=== PATIENT | male | born 2000 | race Caucasian/White ===

== ENCOUNTER 2022-03-23 11:39 | Emergency (ER) | payer BC, SELFPAY ==
[2022-03-23 11:52] VITALS: BP 122/58; PULSE 76; RESP 18; TEMP 36.6; O2SAT 97; BMI 25.8
--- NOTE | 2022-03-23 12:37 | ED.GENADULT ---
HPI - General Adult General Time Seen by Provider: 12:37 Date Seen: 03/23/22 Chief complaint: Abdominal Pain Stated complaint: Abdominal Pain Time Seen by Provider: 03/23/22 11:40 Source: patient Mode of arrival: ambulatory Limitations: no limitations History of Present Illness HPI narrative: Patient is a 21-year-old male who was in [place] about a month ago has had diarrhea since, he was on some type of dexamethasone medicine for a week or so prescribed by his physician family member in [place]. The patient denies fevers denies blood in his stool, denies significant abdominal pain, but he does have some abdominal cramping when he has loose stools, he reports mostly it is water. He reports he has about 10 stools a day. He has had no weight loss. He is attending school in [place]. He is generally quite healthy on no home medications. Related Data Home Medications Medication Instructions Recorded Confirmed No Known Home Medications 03/23/22 03/23/22 Allergies Allergy/AdvReac Type Severity Reaction Status Date / Time No Known Drug Allergies Allergy Verified 03/23/22 11:58 Review of Systems Status of ROS: Reports: 6 or more systems reviewed and unremarkable except as noted in History and below PFSH PFS Social History Smoking Status: Never smoker How often do you have a drink containing alcohol: monthly or less AUDIT-C Alcohol total score: 1 Non-prescribed substance use: denies use Exam Narrative: Exam Narrative: Objective: Patient is no apparent distress noncyanotic Vital signs are unremarkable he he is afebrile HEENT is unremarkable good hydration in the mouth Neck is supple Abdomen benign soft nontender Pulses regular Extremities show good perfusion neurologic grossly nonfocal he is ambulatory Const: Vital Signs, click to edit/add: Vital Signs - 24 hr 03/23/22 11:52 Temperature 97.9 F Pulse Rate [Pulse Oximeter] 76 Respiratory Rate 18 Blood Pressure [Ri ght Upper Arm] 122/58 L Pulse Oximetry 97 Oxygen Delivery Me thod Room Air Course Vital Signs Vital signs: Initial Vital Signs Temperature 97.9 F 03/23/22 11:52 Temperature Source Temporal Artery Scan 03/23/22 11:52 Pulse Rate 76 03/23/22 11:52 Respiratory Rate 18 03/23/22 11:52 Blood Pressure 122/58 L 03/23/22 11:52 Blood Pressure Mean 79 03/23/22 11:52 Blood Pressure Position Supine 03/23/22 11:52 Pulse Oximetry 97 03/23/22 11:52 Oxygen Delivery Method 03/23/22 11:52 Vital Signs Temperature 97.9 F 03/23/22 11:52 Pulse Rate 76 03/23/22 11:52 Respiratory Rate 18 03/23/22 11:52 Blood Pressure 122/58 L 03/23/22 11:52 Pulse Oximetry 97 03/23/22 11:52 Oxygen Delivery Method 03/23/22 11:52 Temperature 97.9 F 03/23/22 11:52 Pulse Rate 76 03/23/22 11:52 Respiratory Rate 18 03/23/22 11:52 Blood Pressure 122/58 L 03/23/22 11:52 Pulse Oximetry 97 03/23/22 11:52 Oxygen Delivery Method 03/23/22 11:52 Medical Decision Making MDM Narrative Medical decision making narrative: Patient has had about a 1 month history of loose stools watery stools since travel to [place]. He was on some type of steroid medicine for a few days. His symptoms started before that. He has had some looser stools when he comes back from [place] in the past but they usually resolve. He has been taking Imodium, and that seems to help a little. He has a benign abdomen, and benign appearance. I think at this point he would benefit from stool culture O&P, C diff, and continue Imodium. I think we will wait and see what his culture shows before we treated with antibiotics. Addendum: The patient's lab studies look reassuring, his CRP is negative. He did leave some stool sample here that test will be run on. In the interim he will do the Imodium, yogurt to 3 times a day, fluids, Tylenol if needed. We will call him back as an ER with the results of his stool sample studies. Treatment if needed. Hopefully his symptoms will be self-limited. If he is not better within the next 3-5 days and recommend repeat recheck with his regular doctor Lab Data Labs: Lab Results 03/23/22 03/23/22 03/23/22 Range/Units 12:31 12:31 12:31 WBC 5.98 (4.50-11.00) K/uL RBC 4.73 (4.30-5.90) m/uL Hgb 14.5 (13.5-17.5) gm/dL Hct 42.7 (37.0-53.0) % MCV 90 (80-100) fL MCH 31 (26-34) pg MCHC 34 (32-36) gm/dL RDW Coeff of Estuardo 11.6 (11.5-15.5) % Plt Count 241 (140-440) K/uL Neut % (Auto) 48.4 (42.0-72.0) % Lymph % (Auto) 40.6 (20-44) % Caswell % (Auto) 8.2 (0.0-11.0) % Eos % (Auto) 2.3 (0.0-7.0) % Baso % (Auto) 0.3 (0.0-3.0) % Neut # (Auto) 2.89 (1.7-7.0) K/uL Lymph # (Auto) 2.43 (0.90-2.90) K/uL Caswell # (Auto) 0.50 (0.00-0.90) K/UL Eos # (Auto) 0.14 (0.00-0.50) K/uL Baso # (Auto) 0.02 (0.00-0.30) K/uL Sodium 141 (135-149) mmol/L Potassium 4.4 (3.6-5.1) mmol/L Chloride 107 (96-114) mmol/L Carbon Dioxide 28 (20-32) mmol/L BUN 15 (5-24) mg/dL Creatinine 0.8 (0.5-1.5) mg/dL Estimated Creat Clear 132.92 Estimated GFR 130 ml/min Glucose 106 (60-115) mg/dL Calcium 9.3 (8.4-10.6) mg/dL Total Bilirubin 0.6 (0.1-1.5) mg/dL Direct Bilirubin 0.2 (0.0-0.5) mg/dL AST 51 H (12-35) U/L ALT 76 H (4-50) U/L Alkaline Phosphatase 94 (40-150) U/L C-Reactive Protein < 0.5 L (0.5-1.0) mg/dL Total Protein 7.3 (6.0-8.3) g/dL Albumin 4.3 (3.3-5.0) g/dL Amylase 43 (18-89) U/L Stl C.difficile Tox PCR (Negative) St C. diff Tox Epid 027 (Negative) 03/23/22 Range/Units 12:46 WBC (4.50-11.00) K/uL RBC (4.30-5.90) m/uL Hgb (13.5-17.5) gm/dL Hct (37.0-53.0) % MCV (80-100) fL MCH (26-34) pg MCHC (32-36) gm/dL RDW Coeff of Estuardo (11.5-15.5) % Plt Count (140-440) K/uL Neut % (Auto) (42.0-72.0) % Lymph % (Auto) (20-44) % Caswell % (Auto) (0.0-11.0) % Eos % (Auto) (0.0-7.0) % Baso % (Auto) (0.0-3.0) % Neut # (Auto) (1.7-7.0) K/uL Lymph # (Auto) (0.90-2.90) K/uL Caswell # (Auto) (0.00-0.90) K/UL Eos # (Auto) (0.00-0.50) K/uL Baso # (Auto) (0.00-0.30) K/uL Sodium (135-149) mmol/L Potassium (3.6-5.1) mmol/L Chloride (96-114) mmol/L Carbon Dioxide (20-32) mmol/L BUN (5-24) mg/dL Creatinine (0.5-1.5) mg/dL Estimated Creat Clear Estimated GFR ml/min Glucose (60-115) mg/dL Calcium (8.4-10.6) mg/dL Total Bilirubin (0.1-1.5) mg/dL Direct Bilirubin (0.0-0.5) mg/dL AST (12-35) U/L ALT (4-50) U/L Alkaline Phosphatase (40-150) U/L C-Reactive Protein (0.5-1.0) mg/dL Total Protein (6.0-8.3) g/dL Albumin (3.3-5.0) g/dL Amylase (18-89) U/L Stl C.difficile Tox PCR Negative (Negative) St C. diff Tox Epid 027 PRESUMPTIVE NEGATIVE (Negative) Discharge Plan Discharge Clinical Impression: Diarrhea Patient Disposition: Home w/ Parent or Adult Condition: Stable Additional Instructions: Continue Imodium as needed, fluids, light activity. Would consider antibiotic treatment pending his findings on his stool analysis. Light activity, yogurt by mouth recommended, fluids, Imodium as needed. Return as needed. Activity Level: Light activity Diet Detail: And yogurt to 3 times a day to his diet Prescriptions: No Action No Known Home Medications Stand Alone Forms: [employer] Info Instructions
[2022-03-23 12:43] LABS: Basophils Absolute Auto 0.02 K/uL (0.00-0.30); Basophils Percent Auto 0.3 % (0.0-3.0); Eosinophils Absolute Auto 0.14 K/uL (0.00-0.50); Eosinophils Percent Auto 2.3 % (0.0-7.0); Hematocrit 42.7 % (37.0-53.0); Hemoglobin* 14.5 gm/dL (13.5-17.5); Immature Granulocytes Abs Auto 0.01 K/uL (0.00-0.30); Immature Granulocytes Pct Auto 0.2 %; Lymphocytes Absolute Auto 2.43 K/uL (0.90-2.90); Lymphocytes Percent Auto 40.6 % (20-44); Mean Corpuscular HGB Conc 34 gm/dL (32-36); Mean Corpuscular Hemoglobin 31 pg (26-34); Mean Corpuscular Volume 90 fL (80-100); Monocytes Percent Auto 8.2 % (0.0-11.0); Neutrophils Absolute Auto 2.89 K/uL (1.7-7.0); Neutrophils Percent Auto 48.4 % (42.0-72.0); Platelet Count* 241 K/uL (140-440); RDW Coefficient of Variation % 11.6 % (11.5-15.5); Red Blood Count 4.73 m/uL (4.30-5.90); White Blood Count* 5.98 K/uL (4.50-11.00)
--- NOTE | 2022-03-23 12:49 | ED.NURSE ---
stool sample collected and sent to lab.
[2022-03-23 12:54] LABS: Albumin* 4.3 g/dL (3.3-5.0)
[2022-03-23 12:55] LABS: Chloride* 107 mmol/L (96-114); Potassium* 4.4 mmol/L (3.6-5.1); Sodium* 141 mmol/L (135-149)
[2022-03-23 12:57] LABS: Alanine Aminotransferase* 76 U/L (4-50); Alkaline Phosphatase* 94 U/L (40-150); Aspartate Amino Transferase* 51 U/L (12-35); Bilirubin Direct* 0.2 mg/dL (0.0-0.5); Bilirubin Total* 0.6 mg/dL (0.1-1.5); Total Protein* 7.3 g/dL (6.0-8.3)
[2022-03-23 12:58] LABS: Amylase* 43 U/L (18-89); Carbon Dioxide* 28 mmol/L (20-32)
[2022-03-23 12:59] LABS: Blood Urea Nitrogen* 15 mg/dL (5-24); Calcium* 9.3 mg/dL (8.4-10.6); Glucose* 106 mg/dL (60-115)
[2022-03-23 13:01] LABS: Slide Review Reflex No
[2022-03-23 13:04] LABS: C Reactive Protein* < 0.5 mg/dL (0.5-1.0)
[2022-03-23 13:14] LABS: Creatinine* 0.8 mg/dL (0.5-1.5); Est. Creatinine Clearance* 132.92; Estimated Glomerular Filt Rate 130 ml/min
[2022-03-23 14:03] LABS: C.Difficile Negative (Negative); CDIFFEPI 027 PRESUMPTIVE NEGATIVE (Negative)
[2022-03-29 14:50] LABS: Ova and Parasite, Fecal Negative (Negative)
== END 2022-03-23 13:31 | disposition home or self-care (01) ==
PROVIDERS: Emergency Provider Family Medicine
DX: R19.7 Diarrhea, unspecified (principal)
CPT/HCPCS: 36415; 80048; 80076; 82150; 85025; 86140; 87045; 87046; 87077; 87177; 87209; 87427; 87493; 99283; 99284